=== PATIENT | male | born 1965 | race African-American/Black ===

== ENCOUNTER 2025-05-12 15:24 | Emergency (ER) | payer OTHER ==
[~2025-05-12] VITALS: Ht 182.9 cm; Wt 95.0 kg
[2025-05-12 16:05] VITALS: O2SAT 97
[2025-05-12] MEDS: ACETAMINOPHEN 325MG TABLET PO ONE (17:33)
[2025-05-12] MEDS: KETOROLAC 15MG/ML VIAL IM ONE (17:33)
[2025-05-12 18:39] VITALS: BP 146/92; PULSE 74; RESP 16; TEMP 36.8; O2SAT 100
== END 2025-05-12 18:49 | disposition home or self-care (01) ==
LOC: ER 15:24
DX: S16.1XXA Strain of muscle, fascia and tendon at neck level, initial encounter (principal); S93.409A Sprain of unspecified ligament of unspecified ankle, initial encounter; Z79.899 Other long term (current) drug therapy; X50.1XXA Overexertion from prolonged static or awkward postures, initial encounter; Y93.89 Activity, other specified; Y92.89 Other specified places as the place of occurrence of the external cause; Y99.8 Other external cause status
CPT/HCPCS: 73610; 73630; 96372; 99284; J1885; Z7610